=== PATIENT | female | born 1980 | race Caucasian/White ===

== ENCOUNTER 2020-06-02 15:49 | Emergency (ER) | payer SELFPAY ==
[2020-06-02 16:12] VITALS: BP 121/75; PULSE 75; TEMP 98.7; BMI 34.1
[2020-06-02] MEDS ORDERED: IBUPROFEN 600 MG TABLET (FP) PO ONE ×2 (16:34→16:36)
== END 2020-06-02 17:57 | disposition home or self-care (01) ==
LOC: JER 15:49
DX: R07.1 Chest pain on breathing (principal)
CPT/HCPCS: 71046-TC-FY; 99284-25

== ENCOUNTER → 2021-02-18 | Day surgery (SDC) | payer OTHER | END | disposition home or self-care (01) | LOC: FMAMMOTONE 09:56 | PROVIDERS: ATTEND Surgery | PROC: 0HBT3ZX Excision of Right Breast, Percutaneous Approach, Diagnostic (ICD-10-PCS; principal; 2021-02-18) | DX: N60.21 Fibroadenosis of right breast (principal); N60.31 Fibrosclerosis of right breast; N64.89 Other specified disorders of breast; R92.8 Other abnormal and inconclusive findings on diagnostic imaging of breast | CPT/HCPCS: 19081; 76098-TC-FY; 88305-TC ==